=== PATIENT | male | born 1995 | race Caucasian/White ===

== ENCOUNTER 2022-02-26 11:14 | Emergency (ER) | payer BC, SELFPAY ==
[2022-02-26 11:23] VITALS: BP 137/77; PULSE 76; RESP 16; TEMP 36.9; O2SAT 99
--- NOTE | 2022-02-26 11:31 | ED.URI ---
HPI - URI/Sore Throat General Chief Complaint: Upper Respiratory Infection Stated Complaint: sore throat Time Seen by Provider: 02/26/22 11:31 Source: patient, family and RN notes reviewed History of Present Illness HPI Narrative: patient is a 26-year-old male who presents to urgent care with complaints of a sore throat for the last 3 days. Patient states that it does seem to have gotten worse and he thought he saw something black in his tonsil this morning . Patient states he has been taking DayQuil and NyQuil. Denies any known fevers, nausea or vomiting. No other acute complaints. No acute distress noted. Patient aware of the plan of care. Some parts of this dictation were generated by voice recognition software and may contain typographical and/or grammatical inaccuracies. Related Data Allergies Allergy/AdvReac Type Severity Reaction Status Date / Time No Known Allergies Allergy Verified 02/26/22 11:35 Review of Systems Review of Systems: GENERAL: Denies fever, chills or decreased activity EYES: Denies any eye discharge or redness. ENT: Denies any ear mouth . Reports of sore throat and swollen tonsils RESP: Denies any cough, wheezing, or difficulty breathing CARDIOVASCULAR: Denies any rapid heart rate or cool extremities ABDOMINAL: Denies any vomiting, diarrhea, or poor feeding : Denies any dysuria, decreased urine frequency SKIN: Denies any lesions, rashes, bruises MUSCULOSKELETAL: Denies any extremity disuse or swelling NEURO: Denies any lethargy, irritability All other systems reviewed are negative, except as documented in HPI. [facility] Past Medical History Medical History BMI 39.0-39.9,adult Chronic GERD STOMACH CRAMPING AND FREQUENT VOMITING GERD (gastroesophageal reflux disease) Nausea and vomiting in adult Obesity Family History Family History Grandparent Family history of lung cancer Family history of malignant neoplasm of brain Family history of type 2 diabetes mellitus Father Hypertension Mother No problems noted. Sibling No problems noted. 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 There is no relevant family history pertinent to the patient complaint. Exam Narrative: GENERAL APPEARANCE: The patient is a well-developed, well-nourished child who is awake, active. Interacts appropriately with surroundings and examiner, in no acute distress. SKIN: Skin is warm and dry without erythema, swelling or exudate. There is good turgor. No tenting. HEAD: Atraumatic. Normocephalic. No temporal or scalp tenderness. EYES: Moist and bright. Sclera and conjunctivae normal. No discharge. PERRLA. Extraocular motions intact. Gross visual acuity intact. EARS: Pinna is normal shape and contour. Clear external auditory canals. TM pearly leon with good cone of light, no erythema or suppuration. No gross hearing deficit. NOSE: pink, moist mucosa with good air movement. clear rhinorrhea withoutnasal flaring. Septum midline. Mouth: moist mucous membranes. THROAT; moderate erythema to posterior pharynx with mild to moderate bilateral tonsillar edema / erythema with bilateral exudate and moderate postnasal drainage. Uvula midline. Normal movement of soft palate. NECK: Supple and nontender with full range of motion without discomfort. No meningeal signs. LUNGS: Equal and bilateral breath sounds without wheezes, rales or rhonchi. CHEST: The chest wall is without retractions or
== END 2022-02-26 11:41 | disposition home or self-care (01) ==
PROVIDERS: Emergency Provider Nurse Practitioner Family; PCP Family Medicine
DX: J03.90 Acute tonsillitis, unspecified (principal); Z87.891 Personal history of nicotine dependence
CPT/HCPCS: 99213; G0463